=== PATIENT | male | born 1980 | race Caucasian/White ===

== ENCOUNTER 2023-05-11 23:46 | Inpatient (IN) | payer OTHER ==
[2023-05-12 00:45] VITALS: BMI 19.6
[2023-05-12] MEDS ORDERED: IBUPROFEN 600 MG TABLET (FP) PO PRN (01:20)
[2023-05-12] MEDS ORDERED: DICYCLOMINE HCL 10 MG CAPSULE PO PRN (01:20)
[2023-05-12] MEDS ORDERED: NICOTINE POLACRILEX 2 MG GUM BUC PRN (01:20)
[2023-05-12] MEDS ORDERED: hydrOXYzine PAMOATE 25 MG CAPSULE (FP) PO PRN (01:20)
[2023-05-12] MEDS ORDERED: IBUPROFEN 400 MG TABLET (FP) PO PRN (01:20)
[2023-05-12] MEDS ORDERED: MAG HYDROX/AL HYDROX/SIMETH 30 ML UNIT-DOSE CUP PO PRN (01:20)
[2023-05-12] MEDS ORDERED: BISMUTH SUBSALICYLATE 524 MG/30 ML PO PRN (01:20)
[2023-05-12] MEDS ORDERED: NALOXONE HCL 0.4 MG/ML VIAL IM PRN (01:20)
[2023-05-12] MEDS ORDERED: ACETAMINOPHEN 325 MG TABLET (FP) PO PRN (01:20)
[2023-05-12] MEDS ORDERED: BENZONATATE 200 MG CAPSULE PO PRN (01:20)
[2023-05-12] MEDS ORDERED: guaiFENesin 600 MG TABLET.ER (FP) PO PRN (01:20)
[2023-05-12] MEDS ORDERED: BENZOCAINE/MENTHOL (CHLORASEPTIC ) LOZENGE MM PRN (01:20)
[2023-05-12] MEDS ORDERED: LOPERAMIDE HCL 2 MG CAPSULE PO PRN (01:20)
[2023-05-12] MEDS ORDERED: POLYETHYLENE GLYCOL (HEALTHYLAX) 3350 17 GM PACKET PO PRN (01:20)
[2023-05-12] MEDS ORDERED: NALOXONE HCL (KLOXXADO) 8 MG SPRAY NS PRN (01:20)
[2023-05-12] MEDS ORDERED: ONDANSETRON *ODT* 4 MG TABLET SL PRN (01:20)
[2023-05-12] MEDS ORDERED: MAGNESIUM HYDROX 2400MG/30ML ORAL SUSPENSION 30 ML CUP PO PRN (01:20)
[2023-05-12] MEDS ORDERED: cloNIDine HCL 0.1 MG TABLET PO PRN (09:42)
[2023-05-12] MEDS ORDERED: diazePAM 5 MG TABLET PO PRN (09:50)
[2023-05-12] MEDS ORDERED: methaDONE HCL 10 MG TABLET (FOR DETOX USE ONLY) PO ONE (10:00)
[2023-05-12] MEDS: PRENATAL VITAMINS W/ FOLIC ACID TABLET (FP) PO SCH (10:32)
[2023-05-12] MEDS: NICOTINE 21 MG/24 HOURS TOPICAL PATCH TD SCH (10:32)
[2023-05-12] MEDS: diazePAM 5 MG TABLET PO SCH ×3 (10:35→22:52)
[2023-05-12] MEDS: METHOCARBAMOL 500 MG TABLET PO PRN (17:29)
[2023-05-12] MEDS: MELATONIN 5 MG TABLETS PO SCH (22:53)
[2023-05-12] MEDS: THIAMINE HCL 100 MG TABLET (FP) PO SCH (22:53)
[2023-05-13] MEDS: diazePAM 5 MG TABLET PO SCH ×4 (05:18→22:22)
[2023-05-13] MEDS: NICOTINE 21 MG/24 HOURS TOPICAL PATCH TD SCH (10:28)
[2023-05-13] MEDS: PRENATAL VITAMINS W/ FOLIC ACID TABLET (FP) PO SCH (10:28)
[2023-05-13 12:17] LABS: HEMATOCRIT 43.4 % (35.4-49); HEMOGLOBIN 14.4 GM/dL (11.7-16.9); MCH 27.7 pg (25.7-33.7); MCHC 33.2 g/dl (32.0-35.9); MEAN CELL VOLUME 83.4 fl (80-96); MEAN PLT VOLUME 7.8 fl (7.5-11.1); PLATELET COUNT 317 10^3/uL (134-434); RDW 13.1 % (11.9-15.9); WHITE BLOOD COUNT 6.6 K/mm3 (4.0-10.0)
[2023-05-13 12:26] LABS: POTASSIUM 4.1 mmol/L (3.5-5.1)
[2023-05-13 12:30] LABS: CALCIUM 8.9 mg/dL (8.5-10.1)
[2023-05-13 12:31] LABS: ALBUMIN 3.4 g/dl (3.4-5.0); BLOOD UREA NITROGEN 15.1 mg/dL (7-18)
[2023-05-13 12:34] LABS: CREATININE 0.8 mg/dL (0.55-1.3)
[2023-05-13 12:36] LABS: BILIRUBIN,TOTAL 0.4 mg/dL (0.2-1); TOT PROT 6.7 g/dl (6.4-8.2)
[2023-05-13] MEDS: MELATONIN 5 MG TABLETS PO SCH (22:22)
[2023-05-13] MEDS: THIAMINE HCL 100 MG TABLET (FP) PO SCH (22:22)
[2023-05-14] MEDS: diazePAM 5 MG TABLET PO SCH ×3 (06:02→22:14)
[2023-05-14] MEDS ORDERED: methaDONE HCL 10 MG TABLET (FOR DETOX USE ONLY) PO ONE (10:00)
[2023-05-14] MEDS: PRENATAL VITAMINS W/ FOLIC ACID TABLET (FP) PO SCH (10:27)
[2023-05-14] MEDS: NICOTINE 21 MG/24 HOURS TOPICAL PATCH TD SCH (10:27)
[2023-05-14] MEDS: METHOCARBAMOL 500 MG TABLET PO PRN (10:29)
[2023-05-14] MEDS: MELATONIN 5 MG TABLETS PO SCH (22:14)
[2023-05-14] MEDS: THIAMINE HCL 100 MG TABLET (FP) PO SCH (22:15)
[2023-05-15] MEDS: diazePAM 5 MG TABLET PO SCH ×3 (06:00→17:16)
[2023-05-15] MEDS: NICOTINE 21 MG/24 HOURS TOPICAL PATCH TD SCH (10:26)
[2023-05-15] MEDS: PRENATAL VITAMINS W/ FOLIC ACID TABLET (FP) PO SCH (10:26)
[2023-05-15] MEDS: METHOCARBAMOL 500 MG TABLET PO PRN (10:27)
[2023-05-15] MEDS ORDERED: hydrOXYzine PAMOATE 25 MG CAPSULE (FP) PO PRN (15:49)
[2023-05-15 16:44] VITALS: BP 108/67; PULSE 84; RESP 16; TEMP 98.4
[2023-05-15] MEDS ORDERED: MELATONIN 5 MG TABLETS PO SCH (22:00)
[2023-05-16] MEDS ORDERED: diazePAM 5 MG TABLET PO ONE (06:00)
[2023-05-16] MEDS ORDERED: methaDONE HCL 10 MG TABLET (FOR DETOX USE ONLY) PO ONE (10:00)
== END 2023-05-15 18:13 | disposition left against medical advice (07) | DRG 770 ==
LOC: YASAS 23:46 → Y3N 05-12 01:46 → UNDOADMIN 05-12 01:46
PROVIDERS: ADMIT Allergy & Immunology; ATTEND Surgery
PROC: HZ2ZZZZ Detoxification Services for Substance Abuse Treatment (ICD-10-PCS; principal; 2023-05-12)
DX: F11.23 Opioid dependence with withdrawal (principal); F10.230 Alcohol dependence with withdrawal, uncomplicated; F14.20 Cocaine dependence, uncomplicated; F17.210 Nicotine dependence, cigarettes, uncomplicated; Z56.0 Unemployment, unspecified; Z59.00 Homelessness unspecified
CPT/HCPCS: 36415; 80053; 85027; 86780; 87635; 87811; 93005; 93010